=== PATIENT | female | born 1975 | race Two or more races ===

== ENCOUNTER 2020-04-05 20:20 | Emergency (ER) | payer OTHER ==
[2020-04-05 20:43] VITALS: BP 125/80; PULSE 64; TEMP 98.5; BMI 26.9
[2020-04-05] MEDS ORDERED: KETOROLAC TROMETHAMINE 30 MG/1 ML VIAL IM ONE (20:55)
[2020-04-05] MEDS ORDERED: LIDOCAINE 5% TOPICAL PATCH TP ONE (20:55)
[2020-04-05] MEDS ORDERED: METHOCARBAMOL 500 MG TABLET PO ONE (20:55)
--- NOTE | 2020-04-05 21:15 | PDOC ---
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 Patient reported pain radiating from right lower back to right flank area which started after heavy lifting. Patient reported pain radiating to back of right thigh. Denies saddle paresthesia, urinary or fecal incontinence. Denies any other symptoms. Patient did not take anything for symptoms Occurred: reports: just prior to arrival Past History - Medical History Allergies/Adverse Reactions: Allergies Allergy/AdvReac Type Severity Reaction Status Date / Time No Known Allergies Allergy Verified 04/05/20 21:15 Home Medications: Ambulatory Orders Lidocaine 5% Patch [Lidoderm -] 1 patch TP DAILY #7 patch 04/05/20 Methocarbamol [Robaxin -] 500 mg PO BID #14 tablet 04/05/20 Naproxen 500 mg PO BID PRN #20 tablet 04/05/20 COPD: No - Psycho-Social/Smoking History Smoking History: Never smoked - Substance Abuse Hx (Audit-C & DAST Scrn) How often the patient has a drink containing alcohol: Monthly or less Number of drinks the patient has on a typical day: 1 or 2 How often the patient has six or more drinks on one occasion: Never Score: In Men: 4 or > Positive; In Women: 3 or > Positive: 1 Screen Result (Pos requires Nsg. Audit-10AR): Negative In the last yr the pt used illegal drug/Rx for NonMed reason: No Score: Yes response is considered Positive: 0 Screen Result (Positive result requires Nsg. DAST-10): Negative Review of Systems - Review of Systems Able to Perform ROS?: Yes Is the patient limited Slovak proficient: No Constitutional: No: Chills, Fever, Malaise HEENTM: No: Symptoms Reported, See HPI, Eye Pain, Blurred Vision, Tearing, Recent change in vision, Double Vision, Cataracts, Ear Pain, Ocular Prothesis, Ear Discharge, Nose Pain, Nose Congestion, Tinnitus, Nose Bleeding, Hearing Loss, Throat Pain, Throat Swelling, Mouth Pain, Dental Problems, Difficulty Swallowing, Mouth Swelling, Other Respiratory: No: Symptoms reported, See HPI, Cough, Orthopnea, Shortness of Breath, SOB with Exertion, SOB at Rest, Stridor, Wheezing, Productive cough, Hemoptysis, Other Cardiac (ROS): No: Symptoms Reported ABD/GI: No: Symptoms Reported, Nausea, Vomiting, Abdominal cramping : No: Symptoms Reported, See HPI, Burning, Dysuria, Discharge, Frequency, Urgency Musculoskeletal: Yes: Symptoms Reported, See HPI, Back Pain (right lower back pain) Integumentary: No: Symptoms Reported Neurological: No: Symptoms reported, Weakness All Other Systems: Reviewed and Negative *Physical Exam - Vital Signs Last Vital Signs Temp Pulse Resp BP Pulse Ox 98.5 F 64 19 125/80 98 04/05/20 20:33 04/05/20 20:33 04/05/20 20:33 04/05/20 20:33 04/05/20 20:33 - Physical Exam 04/05/20 21:14 GENERAL: Well developed, well nourished. Awake and alert in mild acute distress. PULMONARY: No evidence of respiratory distress. MUSCULOSKELETAL : Moderate tenderness to right paravertebral muscle of lumbosacral spine of L3-S1. No midline tenderness. No radiculopathy. SKIN: Warm and dry. Normal capillary refill. No rashes. No jaundice. NEUROLOGICAL: Alert, awake, appropriate. No motor deficits in the lower extremities. Gait is normal without ataxia. PSYCHIATRIC: Cooperative. Good eye contact. Appropriate mood and affect. 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 Patient reported pain radiating from right lower back to right flank area which started after heavy lifting. Patient reported pain radiating to back of right thigh. Denies saddle paresthesia, urinary or fecal incontinence. Denies any other symptoms. Patient did not take anything for symptoms Exam significant for moderate tenderness to right paravertebral muscle of lumbosacral spine of L3-S1. No midline tenderness. No CVA tenderness. No radiculopathy. Patient symptoms likely back strain. Robaxin 500 mg p.o., Toradol 30 mg IM given for pain. Lidocaine patch 5% apply to back. Patient requests urine test to make sure she does not have a UTI. UA urine culture ordered 04/05/20 21:44 UA shows some WBCs with epithelial cells which is likely contaminant. Advised patient will wait for urine culture since she has no urine symptoms to treat. Patient agreed with plan. Patient stable for discharge on Robaxin PRN for spasm and naproxen as needed for pain with advised to do hot compresses with orthopedic spine follow-up as needed Discharge - Discharge Information Problems reviewed: Yes Clinical Impression/Diagnosis: Low back strain Qualifiers: Encounter type: initial encounter Qualified Code(s): S39.012A - Strain of muscle, fascia and tendon of lower back, initial encounter Condition: Stable Disposition: HOME - Admission No - Additional Discharge Information Prescriptions: Lidocaine 5% Patch [Lidoderm -] 1 patch TP DAILY #7 patch Naproxen 500 mg PO BID PRN #20 tablet PRN Reason: pain Methocarbamol [Robaxin -] 500 mg PO BID #14 tablet - Follow up/Referral Referrals: Jatin Marroquin MD, [facility] [Staff Physician] - - Patient Discharge Instructions Patient Printed Discharge Instructions: DI for Back Strain or Sprain Additional Instructions: Your pain is likely from your back strain. Your urine shows some small bacteria in the urine which will wait for the urine culture to treat. Take prescribed medication as prescribed for pain and spasm. Apply hot compresses lower back as needed for pain. Follow-up referred orthopedic consumer electronic retail specialist if no improvement in 3-4 days - Post Discharge Activity
[2020-04-05 21:42] LABS: EPI CELLS >36 /uL (0-25.1); HYALINE CASTS 4 /uL (0-3.1); PH,URINE 5.5 (5.0-8.0); URINE APPEARANCE CLOUDY; URINE BACTERIA 3226 /uL (0-1359); URINE BILIRUBIN NEGATIVE (NEGATIVE); URINE COLOR YELLOW; URINE GLUCOSE (UA) NEGATIVE (NEGATIVE); URINE KETONE NEGATIVE (NEGATIVE); URINE LEUK ESTERASE NEGATIVE (NEGATIVE); URINE NITRITE NEGATIVE (NEGATIVE); URINE PROTEIN NEGATIVE (NEGATIVE); URINE RBC 42 /uL (0-23.9); URINE UROBILINOGEN 0.2 mg/dL (0.2-1.0); URINE WBC 15 /uL (0-25.8)
== END 2020-04-05 22:00 | disposition home or self-care (01) ==
LOC: JERFT 20:20 → JER 20:20 → JERFT 22:00
PROC: 3E0233Z Introduction of Anti-inflammatory into Muscle, Percutaneous Approach (ICD-10-PCS; principal; 2020-04-05)
DX: S39.012A Strain of muscle, fascia and tendon of lower back, initial encounter (principal)
CPT/HCPCS: 81003; 87086; 99284-25

== ENCOUNTER 2020-12-25 07:17 | Emergency (ER) | payer BC ==
[2020-12-25 07:36] VITALS: BP 159/89; PULSE 73; TEMP 98; BMI 29.2
[2020-12-25 08:48] LABS: BASO % 0.4 % (0-2.0); HEMATOCRIT 38.2 % (32.4-45.2); HEMOGLOBIN 12.9 GM/dL (10.7-15.3); MCH 32.8 pg (25.7-33.7); MCHC 33.8 g/dl (32.0-36.0); MEAN CELL VOLUME 97.1 fl (80-96); MONO % 7.4 % (3.8-10.2); NEUT % 58.2 % (42.8-82.8); PLATELET COUNT 252 K/MM3 (134-434); RBC 3.94 M/mm3 (3.60-5.2); RDW 13.2 % (11.6-15.6)
[2020-12-25 09:02] LABS: CHLORIDE 101 mmol/L (98-107); SODIUM 135 mmol/L (136-145)
[2020-12-25 09:06] LABS: ALBUMIN 3.9 g/dl (3.4-5.0); ANION GAP 6 MMOL/L (8-16); BLOOD UREA NITROGEN 14.4 mg/dL (7-18); CO2 28 mmol/L (21-32); GLUCOSE,RANDOM 113 mg/dL (74-106); MAGNESIUM 2.1 mg/dL (1.8-2.4)
[2020-12-25 09:09] LABS: CREATININE 0.8 mg/dL (0.55-1.3); SGOT/AST 32 U/L (15-37); SGPT/ALT 72 U/L (13-61)
[2020-12-25 09:11] LABS: BILIRUBIN,TOTAL 0.3 mg/dL (0.2-1); TOT PROT 7.7 g/dl (6.4-8.2)
[2020-12-25 09:13] LABS: ALK PHOS 79 U/L (45-117)
== END 2020-12-25 10:15 | disposition home or self-care (01) ==
LOC: JER 07:17
DX: R42 Dizziness and giddiness (principal)
CPT/HCPCS: 36415; 80053; 82962; 83735; 84443; 84484; 84703; 85025; 93005; 93010; 99284-25